=== PATIENT | male | born 1940 | race Caucasian/White ===

== ENCOUNTER → 2024-02-05 13:50 | Outpatient (REF) | payer MEDICARE, SELFPAY | LOC: RCS 13:50 | PROVIDERS: ATTENDING PHYSICIAN Internal Medicine Cardiovascular Disease; FAMILY PHYSICIAN Family Medicine | DX: I35.0 Nonrheumatic aortic (valve) stenosis (principal) | CPT/HCPCS: 93306 ==

== ENCOUNTER → 2025-07-27 13:03 | Outpatient (REF) | payer MEDICARE, SELFPAY | LOC: HWRCS 13:03 | PROVIDERS: ATTENDING PHYSICIAN Internal Medicine Cardiovascular Disease; FAMILY PHYSICIAN Internal Medicine | DX: I35.0 Nonrheumatic aortic (valve) stenosis (principal) | CPT/HCPCS: 93306 ==